=== PATIENT | female | born 1945 | race Caucasian/White ===

== ENCOUNTER 2025-08-03 15:49 | Outpatient (AMB) | payer MEDICARE, SELFPAY ==
[2025-08-03 16:14] VITALS: BP 182/74; PULSE 62; RESP 16; TEMP 37.1; O2SAT 99; BMI 19.2
--- NOTE | 2025-08-03 16:14 | AM.OFFWIN_ITS ---
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 - For the past four years, the patient h as experienced a recurrent cough that resolves promptly with antibiotics. - The patient reports that without antib iotic treatment, the cough can progress to pneumonia. 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 - The patient denies any associated feve rs or shortness of breath. - The patient reports a history of being treated for allergies for this symptom in the past at urgent care. - She denies fever, chills, CP, SOB, whe ezing, abd pain, n/v/d. - She has no sick contacts, recent trave l. - She is not a smoker. Physical Exam General: Cooperative, healthy appearing, comfortable and no acute distress Orientation/consciousness: Patient oriented x3 Limitations: No limitations Head: Normal to inspection Ears: Hearing grossly normal bilaterally, external ears normal and TM's normal bilaterally Nose: Normal external nose present, normal nares present, and no nasal discharge present. Face and sinus: Sinuses nontender to palpation. Mouth: Normal oral and palatal mucosa present and moist mucous membranes noted. Throat: Tonsils normal. Uvula is midline. Posterior oropharynx with erythema and no exudates. Eyes: Appearance normal, both eyes and all related structures Neck: Normal visual inspection, full ROM. No lymphadenopathy noted. Respiratory: Clear to auscultation bilaterally. Normal respiratory effort, able to speak in complete sentences. No respiratory distress, not tachypneic, no tripod positioning and no use of accessory muscles. Cardiovascular: Regular rate and rhythm. Normal S1 and S2 Skin: No rashes or lesions noted Patient was informed and verbally consented to the use of an ambient scribe for clinic note documentation during this visit Review of Systems Const All systems reviewed & are unremarkable except as noted in HPI and below Physical Exam Vital Signs: Last Vital Signs Temp 98.7 F 08/03/25 16:14 Pulse 62 08/03/25 16:14 Resp 16 08/03/25 16:14 BP 182/74 H 08/03/25 16:14 Pulse Ox 99 08/03/25 16:14 Oxygen Delivery Method Room Air 08/03/25 16:14 BMI result Body Mass Index 19.2 Assessment & Plan Assessment & Plan (1) Cough: Code(s): R05.9 - Cough, unspecified Qualifiers: Cough type: acute Qualified Code(s): R05.1 - Acute cough Plan Most likely chronic cough due to lymphoma plan - Based on the patient's history of a recurrent cough that responds well to antibiotics and can progress to pneumonia if untreated, a course of antibiotics is indicated. - Given the patient's documented allergy to doxycycline, a prescription for a Z- Martínez (azithromycin) will be sent to the pharmacy. - A prescription for cough medicine in pill form will also be provided for symptomatic relief. - A COVID-19 swab was deferred as it was deemed clinically unnecessary. - The patient was reassured that the condition is personal and not contagious to others, and they may proceed with holiday plans. Medications: New benzonatate 100 mg PO bid-tid PRN 21 caps 0RF Cough 7 days azithromycin For 250 mg dose pack: take 500 mg today (day 1), then 250 mg for 4 days (days 2-5) PO 6 tabs 0RF Coding Level of Care Code Est Pt Level 3 (90609) Diagnoses Acute cough R05.1 Cough type: acute
--- NOTE | 2025-08-03 16:45 | MHC.OFFWIV ---
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
== END 2025-08-03 16:35 | disposition home or self-care (01) ==
PROVIDERS: PCP Internal Medicine; Visit Provider Physician Assistant Medical
DX: R05.1 Acute cough (principal)

== ENCOUNTER → 2025-08-03 15:49 | Outpatient (BNVA) | payer MEDICARE, SELFPAY | PROVIDERS: PCP Internal Medicine; Visit Provider Physician Assistant Medical | DX: R05.1 Acute cough (principal) | CPT/HCPCS: 99212 ==

== ENCOUNTER 2025-08-15 07:17 | Outpatient (REF) | payer MEDICARE, SELFPAY ==
--- NOTE | ~2025-08-15 | XR_ITS ---
EXAMINATION: XR CHEST CLINICAL INFORMATION: R05.9 - Cough, unspecified COMPARISON: None available. TECHNIQUE: PA and lateral views. FINDINGS: Hyperinflated lungs. Pulmonary reticular pattern. No gross consolidation, pleural effusion or pneumothorax. Cardiomediastinal silhouette size is normal. Multilevel spondylosis and kyphotic deformity mid thoracic spine. 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 Multilevel spondylosis and kyphotic deformity, thoracic spine. Electronically signed by: Yahir Prasad MD 08/15/2025 08:57 AM EST
== END 2025-08-15 07:18 | disposition home or self-care (01) ==
LOC: HO.HMGCX 07:17
PROVIDERS: PCP Internal Medicine; Visit Provider Nurse Practitioner Family
DX: R07.89 Other chest pain (principal); R05.9 Cough, unspecified
CPT/HCPCS: 71046; 87633; 87637; 99212

== ENCOUNTER 2025-08-15 07:17 | Outpatient (AMB) | payer MEDICARE, SELFPAY ==
--- OUTSIDE RECORDS SUMMARY | 2025-08-15 07:21 | XMS_ITS | Patient Health Record ---
Author Organization [facility] Address [address] [place] [id number] Care Team Providers Care Termite Treater Name Role Phone Gill(inactive) Jewel HINTON Primary Care Provider U harshal Barron Jr Kaushik Unavailable Reason For Referral No Information Medications Medication SIG (Take, Route, Frequency, Duration) Notes Start Date End Date Status Aspir-81 81 MG Tablet Delayed Release 1 tablet Orally Once a day Active Colyte with Flavor Packs 240 GM Solution Reconstituted As directed Orally Over the specified time.; Duration: 1 day(s) Active OsmoPrep 1.102-0.398 GM Tablet 32 tablets Orally over two days as directed; Duration: 2 day(s) Active Alendronate Sodium 70 MG Tablet 1 tablet Orally Active Calcium + D3 600-200 MG-UNIT Tablet Orally Active Immunizations Vaccine Route Administration Date Status Comme nts Flu vaccine no Preserv 3 and > Unknown 05/21/2016 Admin istered Social History Tobacco Use: Social History Observation Description Date Details (start date - stop date) Never Smoker NA - NA Social History Drugs/Alcohol: Social Info Question Answer Notes Alcohol Screen Did you have a drink containing alcohol in the past year? Yes How often did you have a drink containing alcohol in the past year? 2 to 3 times a week (3 points) How many drinks did you have on a typical day when you were drinking in the past year? 1 or 2 drinks (0 point) How often did you have 6 or more drinks on one occasion in the past year? Never (0 point) Points 3 Interpretation Positive Tobacco Use: Social Info Question Answer Notes Tobacco Use/Smoking Patient is a nonsmoker Additional Details Category Social Info Options Details Miscellaneous: Marital status: Occupation: retired Problems Problem Type SNOMED Code ICD Code Onset Dates Problem Status W/U Status Risk Notes Problem Change in bowel habit (17717341) Change in bowel habits (R19.4) Active confirmed Plan Of Treatment Future Test Test Name Order Date COLONOSCOPY 03/05/2017 Insurance Providers Payer Name Payer Address Payer Phone Subscriber Number Group Number Insured Name Patient Relationship to Insured Coverage Start Date Coverage End Date MEDICARE OF [place] [address] [place] [address] [id number] GRZEGORZ DURAN Self - patient is the insured [employer] CLAIM[employer] [address] [place] [address] [phone] [id number] GRZEGORZ DURAN Self - patient is the insured Medical (General) History Medical History History ICD Code Denies [place],DM,CVA,Lung disease,renal dise ase lymphoma shingles
--- NOTE | 2025-08-15 07:24 | AM.OFFWIN_ITS ---
Intake Vital Signs 08/15/25 07:25 Height 5 ft 4 in Weight 110 lb BMI 18.9 BP 144/66 H Blood Pressure Location Rt brachial Position Sitting Pulse 61 Pulse Source Pulse Oximeter Temp 97.8 F Temp Source Oral Pulse Oximetry (%) 99 Oxygen Delivery Method Room Air Intake Visit Reasons: EP-cough, diarrhea Intake Note: Patient presents c/o cough x3 days. Patient has lymphoma. Patient Tobacco Use Status: Never used Tobacco Allergies doxycycline Allergy (Intermediate, Verified 08/15/25 07:27) Itching Medication List - Last Reconciled 08/15/25 by Smiley Guerra NP azithromycin 500 mg PO DAILY 3 days benzonatate 100 mg PO BID loratadine 10 mg PO DAILY rosuvastatin 10 mg PO BEDTIME turmeric 1,000 mg PO .QD HPI HPI Comments History of Present Illness Details 79-year-old female presents to the walk- in clinic with 3 days of cough and chest tightness. Symptoms are gradual in onset. She denies fever, chills, nausea, vomiting, headache, dizziness, or sick contacts. No recent travel. History notable for lymphoma, currently in remission for 8 years. No known cardiac or pulmonary disease reported by patient. No recent medication changes. [facility] Medical History (Updated 08/15/25 @ 07:51 by Smiley Guerra NP) Cough Social History Patient Tobacco Use Status: Never used Tobacco Review of Systems Const All systems reviewed & are unremarkable except as noted in HPI and below Physical Exam Vital Signs: Last Vital Signs Temp 97.8 F 08/15/25 07:25 Pulse 61 08/15/25 07:25 BP 144/66 H 08/15/25 07:25 Pulse Ox 99 08/15/25 07:25 Oxygen Delivery Method Room Air 08/15/25 07:25 BMI result Body Mass Index 18.9 Const General: no acute distress Nutritional Appearance: well nourished Orientation/consciousness: patient oriented x3 HEENT Head: Yes normocephalic Ears: external ears normal and TM abnormal with fluid behind the TM bilateral General nose exam: No nasal discharge present Face and sinus: Yes sinuses nontender Mouth: moist mucous membranes Throat: Yes uvula midline Resp Effort & Inspection: normal respiratory effort, able to speak in complete sentences, no audible wheezes and Actively coughing Auscultation: clear to auscultation bilaterally, no crackles, no rales, no rhonchi and no wheezes Cardio Heart sounds: S1 normal heart sound present and S2 normal heart sound present Neuro General: patient oriented x3 Assessment & Plan Assessment & Plan (1) Cough: Code(s): R05.9 - Cough, unspecified Plan: Differential includes viral URI, acute bronchitis, early pneumonia, post-nasal drip?related cough, reactive airway response. Ordered chest X-ray to rule out Pneumonia given age and chest tightness. COVID/Flu/RSV testing ordered. Prescribed Azithromycin for 3 days. Supportive care: hydration, throat lozenges, humidifier, OTC cough suppressant as appropriate. Return precautions reviewed: worsening chest tightness, shortness of breath, high fever, confusion, or persistent symptoms > 7?10 days. Orders: Orders XR chest 2V Today R05.9 - Cough, unspecified Resp Pathogen Panel - [facility] [place] Today R05.9 - Cough, unspecified Medications: New azithromycin 500 mg PO DAILY 3 tabs 0RF 3 days R05.9 - Cough, unspecified benzonatate 100 mg PO BID 90 caps 0RF R05.9 - Cough, unspecified Coding Level of Care Code Est Pt Level 4 (43106) Diagnoses Cough R05.9 Time Spent (min) 20
[2025-08-15 07:25] VITALS: BP 144/66; PULSE 61; TEMP 36.6; O2SAT 99; BMI 18.9
== END 2025-08-15 07:52 | disposition home or self-care (01) ==
PROVIDERS: PCP Internal Medicine; Visit Provider Nurse Practitioner Family
DX: R05.9 Cough, unspecified (principal)

== ENCOUNTER → 2025-08-15 08:46 | Outpatient (BNV) | payer MEDICARE, SELFPAY | PROVIDERS: PCP Internal Medicine; Visit Provider Radiology Diagnostic Radiology | DX: J43.9 Emphysema, unspecified (principal); M47.814 Spondylosis without myelopathy or radiculopathy, thoracic region | CPT/HCPCS: 71046 ==